=== PATIENT | female | born 1990 | race Caucasian/White ===

== ENCOUNTER 2019-02-10 15:12 | Outpatient (RCR) | payer OTHER | END 2019-03-20 15:09 | disposition home or self-care (01) | LOC: MKS.ESL.PT 15:12 | DX: M79.89 Other specified soft tissue disorders (principal) ==

== ENCOUNTER 2019-07-21 04:22 | Emergency (ER) | payer OTHER ==
[~2019-07-21] VITALS: Ht 154.9 cm; Wt 86.4 kg
[2019-07-21 04:30] VITALS: TEMP 97.9
[2019-07-21] MEDS ORDERED: PRENATAL TABLET PO (04:35)
[2019-07-21] MEDS ORDERED: ASPIRIN 81M81 MG/TA2 PO (04:36)
[2019-07-21] MEDS ORDERED: ZOLOFT 50MG50 MG PO (04:36)
[2019-07-21] MEDS ORDERED: ZYRTEC 10MG10 MG PO (04:36)
[2019-07-21] MEDS ORDERED: PRIL40 PO (04:36)
[2019-07-21] MEDS ORDERED: RHINOCORT0.032 MG/1 NS (04:37)
[2019-07-21 05:23] LABS: COLLECTION METHOD CLEAN CATCH
[2019-07-21 05:27] LABS: BASO % 0.3 % (0.0-2.0); EOS # 0.1 (0.0-0.7); EOS % 1.3 % (0-4.0); GRAN % 62.7 % (42.2-75.2); HEMATOCRIT 37.5 % (37.0-47.0); HEMOGLOBIN 11.9 g/dl (12.5-16.0); LYMPH # 3.1 (1.2-3.4); LYMPH % 28.1 % (20.0-51.0); MEAN CELL VOLUME 83 fl (80.0-100.0); MEAN CORPUSCULAR HEMOGLOBIN 26 pg (27.0-31.0); MEAN CORPUSCULAR HGB CONC 32 g/dl (33.0-37.0); MEAN PLATELET VOLUME 10.6 fl (7.4-10.4); MONO # 0.8 (0.1-0.6); MONO % 7.1 % (1.7-9.3); PLATELET COUNT 371 K/mm3 (130-400); RED BLOOD COUNT 4.52 M/mm3 (4.10-5.30); REDCELL DISTRIBUTION WIDTH-CV 14.2 % (11.5-14.5)
[2019-07-21 05:31] LABS: PH 7 (5-8); SQUAMOUS EPITHELIAL 0-2 /hpf; URINE APPEARANCE Clear; URINE BACTERIA None Seen /hpf; URINE BILIRUBIN Negative (NEGATIVE); URINE BLOOD 2+ (NEGATIVE); URINE COLOR Yellow; URINE GLUCOSE Negative (NEGATIVE); URINE KETONE Negative (NEGATIVE); URINE LEUKOCYTE ESTERASE Negative (NEGATIVE); URINE NITRATE Negative (NEGATIVE); URINE PROTEIN(semi-quant) Negative (NEGATIVE); URINE UROBILINOGEN Negative (NEGATIVE)
[2019-07-21 05:38] LABS: ALBUMIN 3.9 gm/dL (3.5-5.0); BILIRUBIN,TOTAL 0.2 mg/dL (0.0-1.0); CALCIUM 8.9 mg/dL (8.4-10.2); CREATININE, serum 0.36 (0.52-1.25); TOTAL PROTEIN 7.6 gm/dL (6.4-8.2)
[2019-07-21 05:43] LABS: BUDDING YEAST Present /hpf
[2019-07-21] MEDS ORDERED: FLAGYL500 MG PO (06:09)
[2019-07-21] MEDS ORDERED: CLOTRIMAZOLE VA45 GM TP (06:09)
[2019-07-21 06:36] VITALS: BP 115/67; PULSE 77
== END 2019-07-21 06:37 | disposition home or self-care (01) ==
LOC: COL.ER 04:22
PROVIDERS: Emergency Medicine
DX: O20.0 Threatened abortion (principal); O23.591 Infection of other part of genital tract in pregnancy, first trimester; O99.341 Other mental disorders complicating pregnancy, first trimester; O99.281 Endocrine, nutritional and metabolic diseases complicating pregnancy, first trimester; B37.3 Candidiasis of vulva and vagina; F32.9 Major depressive disorder, single episode, unspecified; E03.9 Hypothyroidism, unspecified; B96.89 Other specified bacterial agents as the cause of diseases classified elsewhere; Z79.82 Long term (current) use of aspirin; Z87.891 Personal history of nicotine dependence; Z3A.11 11 weeks gestation of pregnancy

== ENCOUNTER 2020-01-09 17:08 | Outpatient (CLI) | payer BC ==
[~2020-01-09] VITALS: Ht 157.5 cm; Wt 104.5 kg
[~2020-01-09 17:08] MED LIST: ASPIRIN 81M81 MG/TA2 PO; CLOTRIMAZOLE VA45 GM TP; FLAGYL500 MG PO; PRENATAL TABLET PO; PRIL40 PO; RHINOCORT0.032 MG/1 NS; ZOLOFT 50MG50 MG PO; ZYRTEC 10MG10 MG PO
--- NOTE | 2020-01-09 17:25 | NUR ---
1725-G2L1 36[address] Harrison's ambulatory to LR 6 with complaint of contractions that started at 1300 and are every 4 min. Patient anxious and reports severe PTSD from delivery in 2018 that was emergency c/s and was complicated with severe preeclampsia. Patient taking zoloft and in therapy. Reports this am BP 117/60 at home. Denies headache but does report floaters in sight during this that have been on and off. Reports the office did a 24 hour urine that 'was good' and has not had any elevated BP in office. Patients admission BP elevated, see flow record. SVE closed/50/high per NEIDA Lopez. FHR reactive, baseline 145-150bpm. Assessment complete. [id number] acceleration 180-200bpm returns to baseline 145bpm. 1809-Dr. Mon updated on patient and strip reviewed with . Orders recieved for discharge and follow up at the office for BP check on Sunday. 1814-Reported off to NEIDA Thurman who assumes care of patient at this time.
[2020-01-09 17:29] VITALS: BP 139/85; PULSE 93; TEMP 98.2
[2020-01-09] MEDS ORDERED: SYNTHROID0.075 MG/T (17:42)
[2020-01-09] MEDS ORDERED: NATURAL IRON65 MG (17:43)
[2020-01-09 18:00] VITALS: BP 136/62; PULSE 86
[2020-01-09 18:15] VITALS: BP 135/73; PULSE 88
--- NOTE | 2020-01-09 18:20 | NUR ---
EFM ADJUSTSED BP RECHECK. 0 DISCHARGE INSTRUCTIONS REVIEWES WITH PT AND VERBALIZED UNDERSTANDING. ESCORTED TO ENTRANCE BY Flavia GUADALUPE RN
[2020-01-09 18:30] VITALS: BP 109/53
== END 2020-01-09 19:07 | disposition home or self-care (01) ==
LOC: LDRO 17:08
DX: O62.9 Abnormality of forces of labor, unspecified (principal); Z3A.36 36 weeks gestation of pregnancy

== ENCOUNTER 2020-01-13 16:15 | Outpatient (CLI) | payer BC ==
[~2020-01-13] VITALS: Ht 157.5 cm; Wt 107.7 kg
[~2020-01-13 16:15] MED LIST changes: +NATURAL IRON65 MG; +SYNTHROID0.075 MG/T
--- NOTE | 2020-01-13 16:25 | NUR ---
Patient ambulatory onto unit with at side for evaluation. Patient sent over from the office for BP evalation and SROM check. Patient reports good movement and leaking of clear fluid, denies regular/painful contractions or vaginal bleeding. States she is uncomfortable and wants to have her baby. EFMs on, VS taken. AmniTrace negative. SVE closed. Assessment completed. Labs drawn. Plan of care discussed, questions answered.
[2020-01-13 16:35] VITALS: BP 132/75; PULSE 93; TEMP 97.9
[2020-01-13 16:56] LABS: BASO % 0.2 % (0.0-2.0); EOS # 0.1 (0.0-0.7); EOS % 0.9 % (0-4.0); GRAN # 8.1 (1.4-6.5); GRAN % 64.7 % (42.2-75.2); HEMOGLOBIN 11.8 g/dl (12.5-16.0); LYMPH # 3.4 (1.2-3.4); MEAN CELL VOLUME 79 fl (80.0-100.0); MEAN CORPUSCULAR HEMOGLOBIN 25 pg (27.0-31.0); MEAN CORPUSCULAR HGB CONC 32 g/dl (33.0-37.0); MEAN PLATELET VOLUME 11.8 fl (7.4-10.4); MONO # 0.8 (0.1-0.6); MONO % 6.2 % (1.7-9.3); PLATELET COUNT 253 K/mm3 (130-400); RED BLOOD COUNT 4.65 M/mm3 (4.10-5.30); REDCELL DISTRIBUTION WIDTH-CV 16.2 % (11.5-14.5)
[2020-01-13 16:57] LABS: HEMATOCRIT 36.7 % (37.0-47.0)
[2020-01-13 17:00] VITALS: BP 133/73; PULSE 99
[2020-01-13 17:11] LABS: ALBUMIN 3.7 gm/dL (3.5-5.0); BILIRUBIN,TOTAL 0.2 mg/dL (0.0-1.0); CREATININE, serum 0.37 (0.52-1.25); POTASSIUM 3.7 mmol/L (3.4-5.0); TOTAL PROTEIN 7.3 gm/dL (6.4-8.2)
[2020-01-13 17:15] VITALS: BP 126/74; PULSE 90
--- NOTE | 2020-01-13 17:25 | NUR ---
Discharge instructions given. Return precautions reviewed. Patient and verbalized understanding. Ambulatory off of unit at this time.
== END 2020-01-13 17:25 | disposition home or self-care (01) ==
LOC: LDRO 16:15
PROVIDERS: Student in an Organized Health Care Education/Training Program
DX: O42.913 Preterm premature rupture of membranes, unspecified as to length of time between rupture and onset of labor, third trimester (principal); Z3A.36 36 weeks gestation of pregnancy

== ENCOUNTER 2020-01-24 21:29 | Inpatient (IN) | payer BC ==
[2020-01-24] VITALS (7 sets, daily range): BP systolic 117–132; BP diastolic 70–89; PULSE 80–115
[~2020-01-24] VITALS: Ht 157.5 cm; Wt 238.0 kg
[2020-01-24 22:03] LABS: BASO % 0.2 % (0.0-2.0); EOS # 0.1 (0.0-0.7); GRAN # 8.5 (1.4-6.5); GRAN % 62.7 % (42.2-75.2); HEMATOCRIT 37.8 % (37.0-47.0); LYMPH # 3.7 (1.2-3.4); LYMPH % 27.2 % (20.0-51.0); MEAN CELL VOLUME 79 fl (80.0-100.0); MEAN CORPUSCULAR HEMOGLOBIN 25 pg (27.0-31.0); MEAN CORPUSCULAR HGB CONC 32 g/dl (33.0-37.0); MEAN PLATELET VOLUME 12.2 fl (7.4-10.4); MONO # 1.1 (0.1-0.6); MONO % 7.9 % (1.7-9.3); PLATELET COUNT 274 K/mm3 (130-400); RED BLOOD COUNT 4.78 M/mm3 (4.10-5.30); REDCELL DISTRIBUTION WIDTH-CV 16.9 % (11.5-14.5)
[2020-01-25] VITALS (16 sets, daily range): BP systolic 104–140; BP diastolic 50–84; PULSE 74–115; TEMP 97.7–98.1
--- NOTE | 2020-01-25 01:20 | NUR ---
0120 IV ALL INFUSED AND TO INT. REGULAR DIET TAKEN AND RETAINED
--- NOTE | 2020-01-25 01:35 | NUR ---
0135 PERICARE DONE. ROLLED FROM SIDE TO SIDE AND ABD BINDER ON. YAIMA WELL. LIGHTS OUT TO SLEEP
--- NOTE | 2020-01-25 02:00 | NUR ---
0200 PERCOCET X2 PO FOR INC DISCOMFORT.
[2020-01-25 09:28] LABS: HEMOGLOBIN 11.1 g/dl (12.5-16.0)
[2020-01-25 09:38] LABS: HEMATOCRIT 35.1 % (37.0-47.0)
[2020-01-26 09:12] VITALS: BP 122/72; PULSE 90; TEMP 98
[2020-01-26] MEDS ORDERED: IBU600 MG PO (09:48)
[2020-01-26] MEDS ORDERED: PERCOCET 325 MG1 TA2 PO (09:48)
--- NOTE | 2020-01-26 12:30 | NUR ---
discharge instructions given, pt verbalizes understanding. No further questions noted. Pt to personal vehicle.
== END 2020-01-26 12:40 | disposition home or self-care (01) | DRG 788 ==
LOC: LDRO 21:29 → LDR 21:34 → OB 01-25 05:19
PROVIDERS: Obstetrics & Gynecology; ADMIT Student in an Organized Health Care Education/Training Program
PROC: 10D00Z1 Extraction of Products of Conception, Low, Open Approach (ICD-10-PCS; principal; 2020-01-24)
DX: O42.02 Full-term premature rupture of membranes, onset of labor within 24 hours of rupture (principal); Z3A.38 38 weeks gestation of pregnancy; Z37.0 Single live birth; O99.344 Other mental disorders complicating childbirth; F43.10 Post-traumatic stress disorder, unspecified; O34.219 Maternal care for unspecified type scar from previous cesarean delivery; E03.9 Hypothyroidism, unspecified; O99.284 Endocrine, nutritional and metabolic diseases complicating childbirth; O32.1XX0 Maternal care for breech presentation, not applicable or unspecified
CPT/HCPCS: J0690; J1885; J2370; J2405; J2590; J7120

== ENCOUNTER → 2021-07-13 | Outpatient (CLI) | payer BC ==
[~2021-07-13] MED LIST changes: +IBU600 MG PO; +PERCOCET 325 MG1 TA2 PO
== END ==
LOC: COL.RAD 07:06
DX: R19.7 Diarrhea, unspecified (principal); R10.11 Right upper quadrant pain; R16.0 Hepatomegaly, not elsewhere classified